=== PATIENT | male | born 1980 | race Caucasian/White ===

== ENCOUNTER 2023-05-05 09:38 | Day surgery (SDC) | payer OTHER ==
[2023-05-05] MEDS ORDERED: Sodium Chloride 0.9(Preservative Free) 10 ML IJ ONE (09:39)
[2023-05-05] MEDS ORDERED: Depo-Medrol 40 MG/ML IM ONE (09:39)
[2023-05-05] MEDS ORDERED: DIPRIVAN 200 MG/20 ML IV ONE ×2 (11:19→11:24)
--- NOTE | 2023-05-05 13:42 | XRAY ---
Indication: Right L4-S1 transforaminal AUGIE. Intraoperative fluoroscopy provided for 26 seconds. 4 digital spot images submitted for interpretation demonstrates posterior needle tips projecting over the expected right L4 and L5 nerve roots. Small amount of contrast injected for needle tip placement. Correlate with intraoperative findings/report.
[2023-05-05] MEDS ORDERED: Lactated Ringers 1,000 ML IV ONE (16:44)
--- NOTE | 2023-05-05 20:12 | XRAY ---
26 seconds of fluoroscopy was used in surgery for a right L4-S1 transforaminal AUGIE.
== END 2023-05-05 11:48 | disposition home or self-care (01) ==
LOC: SDC-PAIN 09:38
PROVIDERS: ATTEND Psychiatry & Neurology Pain Medicine
DX: M54.16 Radiculopathy, lumbar region (principal); Z79.899 Other long term (current) drug therapy
CPT/HCPCS: 64483; 64484; 72100; 77003; J1030; J2704; Q9966